=== PATIENT | male | born 1960 | race Caucasian/White ===

== ENCOUNTER → 2021-10-20 | Emergency (ER) | payer OTHER ==
[~2021-10-20] VITALS: Ht 165.1 cm; Wt 81.6 kg
[~2021-10-20] MED LIST: HYDROCHLOROTH12.5 MG; IRBESARTAN75 MG
== END | disposition left against medical advice (07) ==
LOC: ER 00:47
DX: Z53.21 Procedure and treatment not carried out due to patient leaving prior to being seen by health care provider (principal)